=== PATIENT | female | born 1955 | race Caucasian/White ===

== ENCOUNTER 2024-07-15 16:00 | Emergency (ER) | payer MEDICARE ==
[2024-07-15] MEDS: Sodium Chloride 0.9% 100 ML IV SCH (16:33)
[2024-07-15] MEDS: Sodium Chloride 0.9% 10 ML Syringe FLUSH PRN (16:33)
[2024-07-15] MEDS: Iopamidol 755 Mg/ML 100 ML Bottle IVPUSH ONE (16:33)
[2024-07-15 16:41] LABS: BASOPHILS PERCENT AUTO 0.4 % (0.0-1.0); EOSINOPHILS ABSOLUTE AUTO 0.1 K/mm3 (0.0-0.4); EOSINOPHILS PERCENT AUTO 0.8 % (0.0-6.0); HEMATOCRIT 35.7 % (37.0-47.0); HEMOGLOBIN 11.8 gm/dl (12.0-16.0); IMMATURE GRAN ABSOLUTE AUTO 0.04 K/mm3 (0.00-0.05); IMMATURE GRAN PERCENT AUTO 0.4 % (0.0-0.4); LYMPHOCYTES ABSOLUTE AUTO 1.8 K/mm3 (1.0-4.8); LYMPHOCYTES PERCENT AUTO 18.7 % (24.0-44.0); MEAN CORPUSCULAR HEMOGLOBIN 29.1 pg (28.0-32.0); MEAN CORPUSCULAR HGB CONC 33.1 g/dl (32.0-36.0); MEAN CORPUSCULAR VOLUME 88.1 fl (83.0-99.0); MEAN PLATELET VOLUME 9.7 fl (9.4-12.3); MONOCYTES ABSOLUTE AUTO 0.8 K/mm3 (0.0-0.8); MONOCYTES PERCENT AUTO 8.3 % (0.0-8.0); NEUTROPHILS ABSOLUTE AUTO 6.9 K/mm3 (1.8-7.7); NEUTROPHILS PERCENT AUTO 71.4 % (41.0-71.0); PLATELET COUNT,PLT 351 K/mm3 (150-400); RED BLOOD CELL COUNT 4.05 M/mm3 (4.10-5.30); WHITE BLOOD CELL COUNT,WBC 9.71 K/mm3 (3.9-11.3)
[2024-07-15 17:06] LABS: A/G RATIO 0.5 (1-2); ALBUMIN 2.2 g/dl (3.4-5.0); ANION GAP 13.5 (5-15); BILIRUBIN TOTAL 0.4 mg/dL (0.2-1.0); BUN/CREATININE RATIO 10.9 (14-18); C-REACTIVE PROTEIN 5.68 mg/dL (<0.30); CALCIUM 8.3 mg/dL (8.5-10.1); CREATININE 1.1 mg/dL (0.55-1.02); EST CRCL DRUG DOSING (CG) 38.8 mL/min; MAGNESIUM 1.7 mg/dL (1.8-2.4); POTASSIUM,K 3.5 mEq/L (3.5-5.1); PROTEIN TOTAL,TP 6.4 g/dl (6.4-8.2)
[2024-07-15] MEDS: Diltiazem 25 MG/5 ML SDV IVPUSH ONE (17:20)
[2024-07-15] MEDS: Diltiazem 125 MG in Sodium Chloride 0.9% 100 ML IV SCH (17:27)
[2024-07-15] MEDS: Aspirin 81 MG Tab.Chew PO ONE (17:29)
[2024-07-15] MEDS: Metoprolol Tartrate 5 MG in Sodium Chloride 0.9% 50 ML IV ONE (18:04)
[2024-07-15] MEDS: Metoprolol Tartrate 5 MG/5 ML SDV IVPUSH ONE (18:06)
[2024-07-15 18:13] LABS: APPEARANCE,URINE CLEAR (Clear); BILIRUBIN,URINE NEGATIVE (Negative); COLOR,URINE LIGHT YELLOW (Yellow); GLUCOSE,URINE NEGATIVE (Negative); KETONES,URINE NEGATIVE (Negative); LEUKOCYTE ESTERASE,URINE NEGATIVE (Negative); NITRITE,URINE NEGATIVE (Negative); OCCULT BLOOD,URINE TRACE-LYSED (Negative); PH,URINE 6.5 (5.0-8.0); PROTEIN,URINE NEGATIVE (Negative); UROBILINOGEN,URINE 0.2 (0.2-1.0)
[2024-07-15] MEDS: Tenecteplase 50 MG Kit IV ONE (18:21)
[2024-07-15 18:27] LABS: BACTERIA,URINE NOT SEEN /hpf (FEW); BARBITURATE SCREEN,URINE NEGATIVE (CUTOFF=200); BENZODIAZEPINES SCREEN,URINE NEGATIVE (CUTOFF=150); BUPRENORPHINE SCREEN,URINE NEGATIVE (CUTOFF=10); EPITHELIAL CELLS,URINE 0-5 /hpf (0-5); METHADONE SCREEN, URINE NEGATIVE (CUTOFF=200); METHAMPHETAMINES SCREEN, URINE NEGATIVE (CUTOFF=500); MUCUS,URINE NOT SEEN /hpf (FEW); OXYCODONE SCREEN,URINE NEGATIVE (CUT0FF=100); RBC,URINE 0-5 /hpf (0-5); THC SCREEN,URINE 20 NG/ML NEGATIVE (CUTOFF=50); WBC,URINE 0-5 /hpf (0-5)
[2024-07-15 18:38] LABS: AMPHETAMINES SCREEN, URINE NEGATIVE (CUTOFF=500)
== END 2024-07-15 18:40 ==
LOC: JD.ED 16:00
DX: I63.9 Cerebral infarction, unspecified (principal)
CPT/HCPCS: 36415; 70450; 70450-26; 70496; 70496-26; 70498; 70498-26; 71045; 71045-26; 80053; 80306; 80307; 81001; 82947; 83735; 85025; 86140; 93005; 96365; 96375; 96376; 99285-25; A9270-GY; C1758; J3101; J3490; Q9967